=== PATIENT | male | born 1975 | race Caucasian/White ===

== ENCOUNTER 2021-09-24 12:36 | Emergency (ER) | payer OTHER ==
[2021-09-24 12:47] VITALS: TEMP 98.6; BMI 36.1
[2021-09-24] MEDS ORDERED: VANCOMYCIN 1 GM in D5W (PRE-DOCKED) 1,000 MG/250 ML IVPB ONE (13:40)
[2021-09-24] MEDS ORDERED: VANCOMYCIN 1,000 MG VIAL (RESTRICTED TO ID ONLY) ONE (13:49)
[2021-09-24 14:38] LABS: HEMATOCRIT 49.2 % (35.4-49); HEMOGLOBIN 17.1 G/dL (11.7-16.9); MCH 30.7 pg (25.7-33.7); MCHC 34.7 g/dl (32.0-35.9); MEAN CELL VOLUME 88.4 fl (80-96); MEAN PLT VOLUME 7.6 fl (7.5-11.1); PLATELET COUNT 374.5 10^3/uL (134-434); RBC 5.56 10^6/uL (4.00-5.60); RDW 14.9 % (11.9-15.9); WHITE BLOOD COUNT 11.8 10^3/uL (4.0-10.8)
[2021-09-24 14:45] LABS: ALBUMIN 4.1 g/dl (3.4-5.0); BILIRUBIN,TOTAL 0.8 mg/dl (0.2-1); CALCIUM 9.2 mg/dl (8.5-10); CREATININE 0.8 mg/dl (0.55-1.3); TOT PROT 7.5 g/dl (6.4-8.2)
[2021-09-24 15:10] LABS: PLATELET ESTIMATE ADEQUATE
[2021-09-24 16:08] VITALS: BP 121/75; PULSE 80
== END 2021-09-24 16:11 | disposition home or self-care (01) ==
LOC: FER 12:36
PROC: 3E033GC Introduction of Other Therapeutic Substance into Peripheral Vein, Percutaneous Approach (ICD-10-PCS; principal; 2021-09-24)
DX: L03.114 Cellulitis of left upper limb (principal)
CPT/HCPCS: 36415; 80053; 85025; 99284-25

== ENCOUNTER 2023-03-07 07:22 | Emergency (ER) | payer OTHER ==
[2023-03-07 07:47] VITALS: BP 135/91; PULSE 77; RESP 16; TEMP 98.9; BMI 32.3
== END 2023-03-07 07:41 | disposition home or self-care (01) ==
LOC: FER 07:22
DX: R05.9 Cough, unspecified (principal); R09.81 Nasal congestion; J06.9 Acute upper respiratory infection, unspecified; Z20.822 Contact with and (suspected) exposure to COVID-19
CPT/HCPCS: 0241U-QW; 99283-25

== ENCOUNTER 2023-04-15 14:15 | Emergency (ER) | payer OTHER ==
[2023-04-15 14:34] VITALS: BP 133/79; PULSE 108; RESP 16; TEMP 99.1; BMI 32.3
[2023-04-15] MEDS ORDERED: KETOROLAC TROMETHAMINE 30 MG/1 ML VIAL IM ONE (14:52)
[2023-04-15] MEDS ORDERED: KETOROLAC TROMETHAMINE 30 MG/1 ML VIAL ONE (14:58)
== END 2023-04-15 15:06 | disposition home or self-care (01) ==
LOC: FER 14:15
PROC: 3E0233Z Introduction of Anti-inflammatory into Muscle, Percutaneous Approach (ICD-10-PCS; principal; 2023-04-15)
DX: M54.16 Radiculopathy, lumbar region (principal); R20.2 Paresthesia of skin
CPT/HCPCS: 99284-25